=== PATIENT | male | born 1950 | race African-American/Black ===

== ENCOUNTER 2017-10-11 21:07 | Emergency (ER) | payer MEDICAID ==
[~2017-10-11] VITALS: Ht 165.1 cm; Wt 70.0 kg
[2017-10-12] MEDS ORDERED: ACETAMINOPHEN 325MG TABLET PO ONE (05:15)
[2017-10-12 07:51] LABS: BASOPHILS % 0.6 % (0.0-2.0); EOSINOPHILS % 2.9 % (0.0-5.0); HEMATOCRIT. 49.2 % (42.0-52.0); HEMOGLOBIN. 16.1 g/dL (14.0-18.0); LYMPHOCYTES % 29.8 % (20.0-50.0); MEAN CORPUSCULAR HEMOGLOBIN 28.4 pg (28.0-32.0); MEAN CORPUSCULAR VOLUME 86.7 fL (80.0-94.0); MEAN PLATELET VOLUME 9.2 fl (7.4-10.4); MONOCYTES % 12.5 % (2.0-8.0); NEUTROPHILS % 54.2 % (40.0-76.0); PLATELET 179 x1000/uL (130-400); RED BLOOD CELL COUNT 5.67 mill/uL (4.7-6.1); RED CELL DISTRIBUTION WIDTH 14.5 % (11.6-14.6)
[2017-10-12 08:00] LABS: CHLORIDE 111 mEq/L (98-107)
[2017-10-12 08:07] LABS: CARBON DIOXIDE 22 mEq/L (21-32)
[2017-10-12 11:23] VITALS: BP 112/69
== END 2017-10-12 19:04 | disposition home or self-care (01) ==
LOC: ER 22:38
DX: M79.605 Pain in left leg (principal); F17.200 Nicotine dependence, unspecified, uncomplicated; F12.10 Cannabis abuse, uncomplicated; F15.10 Other stimulant abuse, uncomplicated
CPT/HCPCS: 36415; 80048; 85025; 93971; 99285